=== PATIENT | male | born 1955 ===

== ENCOUNTER 2016-12-16 15:27 | Emergency (ER) | payer BC ==
--- NOTE | 2016-12-16 16:26 | UC ---
Eye Complaint HPI - HPI Summary HPI Summary: 61 yo male recently moved here from [place]. Has no PMD For 2 months he has noted decreased vision in his right eye For a couple of days he says he had noted a film over the bottom half of his right visual field Saw an eye doctor and was sent to [place] to see a retinal specialist Said he had an acute right retinal hemorrhage with evidence of an old retinal hemorrhage in his left eye Was advised to get BP recheck and find a HARD METALS ENGRAVER HAND - History of Current Complaint Chief Complaint: UCGeneralIllness Stated Complaint: WANTS HIS BLOOD PRESSURE CHECKED Time Seen by Provider: 12/16/16 15:42 Hx Obtained From: Patient Onset/Duration: Gradual Onset, Lasting Weeks Timing: Constant Severity Initially: Mild Severity Currently: Mild Pain Intensity: 0 Pain Scale Used: 0-10 Numeric Aggravating Factor(s): Nothing Alleviating Factor(s): Nothing Associated Signs And Symptoms: Positive: Vision Impairment Right - Risk Factors Penetrating Injury Risk Factor: Negative Globe Rupture Risk Factors: Negative Acute Glaucoma Risk Factors: Negative Optic Artery Occlusion Risk Factors: Negative - Allergies/Home Medications Allergies/Adverse Reactions: Allergies Allergy/AdvReac Type Severity Reaction Status Date / Time raw vegetables Allergy Itching Uncoded 12/16/16 15:40 PMH/Surg Hx/FS Hx/Imm Hx Previously Healthy: Yes - Surgical History Surgical History: None - Family History Known Family History: Positive: Hypertension - Social History Alcohol Use: Rare Substance Use Type: None Smoking Status (MU): Light Every Day Tobacco Smoker Type: Cigars Amount Used/How Often: 1 cigar a day Review of Systems Constitutional: Negative Skin: Negative Eyes: Blurred Vision ENT: Negative Respiratory: Negative Cardiovascular: Negative Gastrointestinal: Negative Genitourinary: Negative Motor: Negative Neurovascular: Negative Musculoskeletal: Negative Neurological: Negative Psychological: Negative All Other Systems Reviewed And Are Negative: Yes Physical Exam Triage Information Reviewed: Yes Appearance: Well-Appearing, No Pain Distress, Well-Nourished Vital Signs: Initial Vital Signs Temp 98.2 F 12/16/16 15:34 Pulse 62 12/16/16 15:34 Resp 16 12/16/16 15:34 BP 142/81 12/16/16 15:34 Pulse Ox 98 12/16/16 15:34 Vital Signs Reviewed: Yes Eyes: Positive: Conjunctiva Clear ENT: Positive: Hearing grossly normal, TMs normal. Negative: Nasal congestion, Nasal drainage, Tonsillar swelling, Tonsillar exudate, Trismus, Muffled/hoarse voice Dental: Negative: Abscess @ Neck: Positive: Supple, Nontender, No Lymphadenopathy, Other: - NO BRUITS Respiratory: Positive: Lungs clear, Normal breath sounds, No respiratory distress, No accessory muscle use Cardiovascular: Positive: RRR, No Murmur, Pulses Normal. Negative: Tachycardia , Bradycardia Musculoskeletal: Positive: ROM Intact, No Edema Neurological Exam: Normal Neurological: Positive: Alert Psychological Exam: Normal Skin Exam: Normal Eye Complaint Course/Dx - Course Course Of Treatment: Patient aware of need to find HARD [employer] ENGRAVER HAND YOLANDA for evaluation. I offerred to do EKG and initiated blood work and check UA. He declined. Would prefer to have it done a doctors office. Will return for new or worsening symtpoms - Differential Dx/Diagnosis Provider Diagnoses: retinal hemorrhage Discharge - Discharge Plan Condition: Stable Disposition: HOME Prescriptions: NIFEdipine ER TAB* [Procardia Xl TAB*] 30 mg PO DAILY #30 tab.xl Patient Education Materials: Retinal Hemorrhage (ED) Referrals: [facility] [place] [facility] [Outside] Additional Instructions: you need to find a top precipitator operator YOLANDA you will need a lot of tests and careful follow up any new symptoms get rechecked your BP was 142/81. I normally would not initiate BP med for a single reading but given your history we will start one
== END 2016-12-16 16:11 | disposition home or self-care (01) ==
LOC: UCCORT 15:27
DX: H35.61 Retinal hemorrhage, right eye (principal); F17.290 Nicotine dependence, other tobacco product, uncomplicated
CPT/HCPCS: 99202; G0463